=== PATIENT | female | born 1960 ===

== ENCOUNTER 2018-11-29 07:45 | Outpatient (CLI) | payer MEDICARE, OTHER | END 2018-11-29 07:46 | disposition home or self-care (01) | LOC: C.MAMMO 07:46 | DX: Z12.31 Encounter for screening mammogram for malignant neoplasm of breast (principal) ==

== ENCOUNTER 2019-03-15 10:37 | Outpatient (CLI) | payer MEDICARE, OTHER | END 2019-03-15 10:38 | disposition home or self-care (01) | LOC: C.DEXAIC 10:37 ==